=== PATIENT | female | born 1960 | race Hispanic/Latino ===

== ENCOUNTER 2016-09-13 15:49 | Outpatient (CLI) | payer BC ==
--- NOTE | 2016-09-13 16:50 | Mammography Report ---
BILATERAL MAMMOGRAM: FINDINGS: There are scattered fibroglandular densities (approximately 25%-50% glandular). No mass, distortion, suspicious calcification, or skin change is seen. No significant change compared to prior examination in July 2015. CAD was utilized. IMPRESSION: Negative mammogram. There is no mammographic evidence of malignancy. RECOMMENDATION: Follow-up per ACS guidelines. BI-RADS CATEGORY: 1 = Negative ACR BI-RADS MAMMOGRAPHIC CODES: 0 = Needs additional imaging evaluation; 1 = Negative; 2 = Benign; 3 = Probably benign; 4 = Suspicious; 5 = Malignant; 6 = Known biopsy-proven malignancy COMMENT: 1. Dense breast tissue, i.e., adenosis, fibrocystic changes, etc., may obscure an underlying neoplasm. 2. Approximately 10% of cancers are not detected with mammography. 3. A negative mammography report should not delay biopsy if a clinically suspicious mass is present. COMMENT: Patient follow-up letters are generated in [email or web address].
== END 2016-09-13 15:50 | disposition home or self-care (01) ==
LOC: SPVWC 15:49
PROVIDERS: ATTEND Obstetrics & Gynecology
DX: Z12.31 Encounter for screening mammogram for malignant neoplasm of breast (principal)
CPT/HCPCS: 77067; G0202

== ENCOUNTER 2016-11-02 06:08 | Inpatient (IN) | payer BC ==
[2016-10-26 15:25] LABS: Basophils % (Auto) 0.5 % (0.0-1.8); Eosinophils % (Auto) 1.1 % (0.0-4.3); Hematocrit 34.8 % (30.3-42.9); Hemoglobin 11.4 gm/dl (10.1-14.3); Mean Corpuscular HGB Conc 33 % (30-34); Mean Corpuscular Hemoglobin 26 pg (28-32); Mean Corpuscular Volume 80 fl (79-97); Platelet Count 286 K/mm3 (140-440); Red Blood Count 4.35 M/mm3 (3.65-5.03); Red Cell Distribution Width 14.7 % (13.2-15.2); White Blood Count 5.8 K/mm3 (4.5-11.0)
[2016-10-26 15:38] LABS: Anion Gap 17 mmol/L; Blood Urea Nitrogen 14 mg/dL (7-17); Calcium 9.1 mg/dL (8.4-10.2); Carbon Dioxide 26 mmol/L (22-30); Chloride 103.7 mmol/L (98-107); Glucose 100 mg/dL (65-100); Potassium 3.9 mmol/L (3.6-5.0); Sodium 143 mmol/L (137-145)
--- NOTE | 2016-11-01 14:34 | History and Physical Report ---
History of Present Illness Date of examination: 10/26/16 History of present illness: Patient has been reassessed/reevaluated. H&P has been reviewed. No interval changes. This is a postmenopausal 56 years old female who presents with menstrual disorder. The symptoms began 4-6 months ago. She complains of irregular menses , mid-cycle spotting, heavy bleeding, dysmenorrhea and clotting, but denies lack of menses, history of ovarian cysts, history of thyroid disease, history of fibroids, history of PCOS, history of bleeding disorder, lightheadedness, fatigue and cramping. Vital Signs: Patient Profile: 56 Years Old Female LMP: 10/22/2016 Height: 65 inches (165.10 cm) Weight: 277 pounds (125.91 kg) BMI: 46.09 BSA: 2.27 Menstrual History: LMP (date): 10/22/2016 Past History : 0 Term Births: 0 Premature Births: 0 Living Children: 0 Para: 0 Mult. Births: 0 Prev : 0 Prev. attempt? 0 Aborta: 0 Elect. Ab: 0 Spont. 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 Denies fever, chills, sweats, anorexia, weakness, malaise, weight loss and sleep disorder. Complains of abnormal vaginal bleeding. Denies vaginal discharge, incontinence, dysuria, hematuria, urinary frequency, amenorrhea, menorrhagia, pelvic pain, genital sores, decreased libido , painful periods, painful sex, urinary urgency, hot flashes, vaginal dryness, vaginal itching and vaginal odor. CV Denies chest pains, palpitations, syncope, dyspnea on exertion, orthopnea, PND and peripheral edema. Resp Denies cough, dyspnea at rest, excessive sputum, hemoptysis, wheezing and pleurisy. GI Denies nausea, vomiting, diarrhea, constipation, change in bowel habits, abdominal pain, melena, hematochezia, jaundice, gas/bloating, indigestion/ heartburn, dysphagia and odynophagia. Breast Denies left breast lump, right breast lump, nipple discharge, bloody discharge from nipple, breast pain, abnormal mammogram and breast enlargement. Psych Denies depression, anxiety, irritability and mood swings. Medications and Allergies Allergies Allergy/AdvReac Type Severity Reaction Status Date / Time Sulfa (Sulfonamide AdvReac stomach Verified 10/25/16 13:53 Antibiotics) hurts Home Medications Medication Instructions Recorded Confirmed Last Taken Type Fexofenadine/Pseudoephedrine 1 each PO DAILY 10/25/16 11/02/16 10/31/16 History [Jackeline-D 24 Hour Tablet] Fluticasone [Flonase] 1 spray NS QDAY 10/25/16 11/02/16 11/01/16 History Hydrochlorothiazide [Hctz] 12.5 mg PO QDAY 10/25/16 11/02/16 11/01/16 History Levothyroxine [Synthroid] 100 mcg PO QAM 10/25/16 11/02/16 11/02/16 History Lisinopril [Zestril] 5 mg PO QDAY 10/25/16 11/02/16 11/02/16 History Omeprazole [Omeprazole] 40 mg PO DAILY 10/25/16 11/02/16 11/02/16 History AtorvaSTATin [Lipitor] 20 mg PO QHS 10/26/16 11/02/16 11/01/16 History Active Meds: Active Medications Cefazolin Sodium (Ancef/Sterile Water 2 Gm/20 Ml) 2 gm in 20 mls @ 80 mls/hr IV PREOP NR PRN Reason: Protocol Exam - Physical Exam Narrative exam: HEENT: normocephalic, no lesions or deformities Neck/Thyroid: supple, thyroid normal Skin no ulcers, xanthomas Chest: respiratory effort normal, clear to auscultation Breasts: no masses or nipple discharge CV: regular, normal S1-S2, no murmur, no rub, no gallop Abdomen: Obese, normal bowel sounds, soft, nontender, no HSM Musculoskeletal: grossly normal ROM in joints, no joint tenderness or muscle weakness Neuro: no gross anomalities Extremities: normal alignment, no joint enlargement, crepitus, masses or tenderness; normal tone and strength 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 No evidence of cystocele or rectocele. Cervix: normal appearance, no lesions, no discharge Uterus: Unable to palpate uterus or adnexa due to obesity Adnexae: Unable to palpate uterus or adnexa due to obesity Rectovaginal: Rectal exam deferred due to colonoscopy recently performed or is planned - Constitutional Vitals: Temp Pulse Resp BP Pulse Ox 98.2 F 90 16 130/80 10/26/16 14:45 10/26/16 14:45 10/26/16 14:45 10/26/16 14:45 Results - Labs CBC & Chem 7: 10/26/16 15:08 10/26/16 15:08 Assessment and Plan - Patient Problems (1) Postmenopausal bleeding Current Visit: Yes Status: Acute Plan to address problem: Diagnosis explained to patient . Questions answered. Failed medical therapy. Probably secondary to # #2. Diagnosis of post menopausal explained. Malignancy risk explained to patient. Patient desires definitive treatment . Patient desires hysterectomy Discussed risks and benefits of laparotomy, laparoscopy, vaginal and robotic assisted approaches for hysterectomies Patient desires robotic assisted total hysterectomy. Consent reviewed and signed . The risks and alternatives for this surgery were reviewed with the patient. Discuss the risks of the surgery including infection, bleeding possibly heavy enough to require a blood transfusion, possible damage to bowel, bladder or ureter. Patient understand that this surgery with make her sterile.Patient understands if her ovaries are removed she will become menopausal. Also if unable to complete robitcally a laparotomy maybe required. Her questions were answered. Patient advised the small risks of spreading of malignancy if morcellator is used during the surgery patient understands and approve of use if necessary (2) Pelvic mass Current Visit: Yes Status: Acute Plan to address problem: Possible etiology of #1 (3) Hypertension Current Visit: Yes Status: Acute Qualifiers: Hypertension type: essential hypertension Qualified Code(s): I10 - Essential (primary) hypertension (4) Morbid (severe) obesity due to excess calories Current Visit: Yes Status: Acute (5) Irritable bowel syndrome (IBS) Current Visit: Yes Status: Chronic Qualifiers: Irritable bowel syndrome type: unspecified Qualified Code(s): K58.9 - Irritable bowel syndrome without diarrhea
[2016-11-02] MEDS ORDERED: NACL BACTERIOSTATIC INFILTRATI ONE (06:30)
[2016-11-02] MEDS ORDERED: ANCEF/STERILE WATER 2 GM/20 ML 2 GM/20 ML SYRINGE IV NR (07:00)
[2016-11-02] MEDS ORDERED: NEURONTIN PO NR (07:00)
[2016-11-02] MEDS ORDERED: PEPCID PO NR (07:00)
[2016-11-02] MEDS ORDERED: VERSED IV NR (07:00)
[2016-11-02] MEDS: NACL 0.9% 1000 ML 1,000 ML IV SCH ×2 (07:09→22:36)
[2016-11-02] MEDS ORDERED: DIPRIVAN 10 MG/ML IV ONE (07:10)
[2016-11-02] MEDS ORDERED: DILAUDID ONE ×2 (07:11→11:22)
[2016-11-02] MEDS ORDERED: XYLOCAINE MPF 2% ONE (07:12)
[2016-11-02] MEDS ORDERED: DECADRON ONE (07:12)
[2016-11-02] MEDS ORDERED: ZEMURON IV ONE (07:12)
[2016-11-02] MEDS ORDERED: ZOFRAN ONE (07:12)
--- NOTE | 2016-11-02 07:23 | Anesthesia Day of Surgery ---
Anesthesia Day of Surgery - Day of Surgery Patient Examined: Yes Patient H&P Reviewed: Yes Patient is NPO: Yes
--- NOTE | 2016-11-02 07:23 | Anesthesia Consultation ---
Anesthesia Consult and Med Hx Date of service: 11/02/16 - Airway Anesthetic Teeth Evaluation: Good ROM Head & Neck: Adequate Mental/Hyoid Distance: Adequate Mallampati Class: Class II Intubation Access Assessment: Probably Good - Pulmonary Exam CTA: Yes - Cardiac Exam Cardiac Exam: RRR - Pre-Operative Health Status ASA Pre-Surgery Classification: ASA3 Proposed Anesthetic Plan: General - Pulmonary Hx Sleep Apnea: Yes (uses cpap) - Cardiovascular System Hx Hypertension: Yes (since 2008) - Central Nervous System Hx Psychiatric Problems: No - Endocrine Hx Hypothyroidism: Yes - Other Systems Hx Alcohol Use: Yes (occas) Hx Obesity: Yes
[2016-11-02] MEDS ORDERED: NEOSPORIN GU IR ONE ×2 (07:34→08:33)
[2016-11-02] MEDS ORDERED: METHYLENE BLUE ONE (07:34)
[2016-11-02] MEDS ORDERED: MARCAINE-EPI/PF 0.25%-1:200,000 INFILTRATI ONE (07:34)
[2016-11-02] MEDS ORDERED: GELFOAM POWDER 1GM MM ONE ×2 (08:33→09:12)
[2016-11-02] MEDS ORDERED: NACL 0.9% IR ONE ×2 (08:33)
[2016-11-02] MEDS ORDERED: THROMBIN (BOVINE) TP ONE ×2 (08:33→09:11)
[2016-11-02] MEDS ORDERED: NACL 0.9% 1000 ML 1,000 ML ONE (09:54)
[2016-11-02] MEDS ORDERED: PREMARIN VG ONE ×2 (10:50→11:00)
[2016-11-02] MEDS ORDERED: TORADOL IV PRN (11:21)
[2016-11-02] MEDS ORDERED: ZOFRAN IV PRN (11:21)
[2016-11-02] MEDS: DILAUDID IV PRN ×2 (11:25→11:35)
--- NOTE | 2016-11-02 11:38 | Operative Report ---
Operative Report Operative Report: Operative Report: Date of procedure: 11/02/2016 Pre-operative diagnosis postmenopausal bleeding and failed medical treatment Post-operative diagnosis: Same Procedure name(s): Robotic assisted total hysterectomy with bilateral salpingo- oophorectomy Surgeon: Hu Marquis MD Hedis Specialist: Nima Dueans Anesthesia: General EBL: 50 mL Complications: vaginal lacerations that needed repair after removal of the uterus Findings: Uterus approximately 8 weeks in size with normal tubes and ovaries bilaterally Specimen(s): Uterus including cervix was bilateral adnexa Procedure: Patient was brought to the operating room where general anesthesia was induced without difficulty. Patient was placed in the dorsal lithotomy position. Prepped and draped in the usual sterile manner for robotic procedure. Mcknight catheter was placed without difficulty. Speculum was placed in the vagina. A large V-Care Uterine manipulator was placed without difficulty. Attention was now switched to the patient's abdomen. A vertical supra-umbilicus incision was made with a scalpel. A 10-12 trocar was placed in this incision under direct visualization. Intra-abdominal placement was verified with no evidence of internal organ damage. The patient pelvic findings were noted as above. It was determined that the patient was a candidate for robotic procedure. On both sides the umbilical incision at 8 cm, incisions were made for robotic trocar. Each robotic trocar was placed under direct visualization with no evidence of internal organ damage. One bankruptcy legal assistant ports were then placed. One 8-10 trocar was placed 2 fingerbreadths above the right iliac crest. At this time the patient was placed in extreme Trendelenburg. The da Renay robot was then docked on the patient's left side. At this time I took my place under the robotic operating howell. Starting on the patient's right side the right ureter was clearly seen out of the operative field. The ovarian vessels were clearly seen cauterize and cut with the robotic scissors. The meso salpinx were cauterized and cut reaching to the round ligament. The round ligament was cauterized and cut. The leaves of the broad ligament on that side was anteriorly and posteriorly. The anterior leaves were use to form a bladder flap anteriorly the posterior leaf was cut exposing the uterine vessels on that side. The uterine vessels were cauterized and cut the bladder flap was more clearly made. Attention was then switched to the patient's left side. Where the ureter was again identified and cleared out of the field. The same procedure was cauterized and cut and the ovarian vessels and receiving with some incising the round ligament broad the broad ligament then cauterized and cut and the uterine vessels were performed.. At this time the uterus was appearing very cyanotic. After inspecting the bladder flap insured no evidence of bladder injury, the colpotomy was then started. Incision started at 6:00 until the V-Care could be seen. This incision was extended from 6:00 to 9:00. Then from 6:00 to 3:00. Then from 9: 00 to 12:00. This incision was extended from 3:00 to 12:00. At this time colpotomy was complete with no evidence of adjacent organ damage. The bankruptcy legal assistant remove the uterus from through the colpotomy site. The vaginal cuff was irrigated and cauterized and found to be hemostatic. The cuff was closed with roboticly using 0 V- Lock suture. This closure was hemostatic after irrigation and Bovie. All pedicles were inspected and found to be hemostatic. The ureters were identified bilaterally and found to be functioning normal. The Mcknight bag had clear yellow urine. [place] is placed across the vaginal cuff. All instruments were then removed. The large trocar sites were closed in layers and 4-0 Vicryl. The smaller incisions were closed subcuticularly with 4-0 Vicryl. Inspection of her vagina revealed a patient with a several vaginal lacerations. These some lacerations some repaired with 3 -0 Vicryl. Primary and so vaginal pack was in place. The patient tolerated procedure well. She was awakened in the operating room and accompanied to recovery room in good condition.
--- NOTE | 2016-11-02 11:46 | Post Anesthesia Evaluation ---
- Post Anesthesia Evaluation Patient Participated: Yes Airway Patent: Yes Stable Respiratory Function: Yes Nausea/Vomiting: No Temp > 96.8F: Yes Pain Manageable: Yes Adequeate Hydration: Yes Anesthesia Complications: No Block Receding Appropriately: Not Applicable Patient on Ventilator: No
[2016-11-02] MEDS ORDERED: TORADOL ONE (12:06)
--- NOTE | 2016-11-02 16:42 | Event Note ---
Date: 11/02/16 Day of surgery. Discuss operative findings with patient and questions answered. Patient without fever. Will ambulate in halls this evening. Good urine output. We will continue routine postoperative care. Discussed with the patient the reason for the vaginal pack. Questions answered. Patient desires Mcknight catheter removed Will observe later on and if ambulating well and good urine output we will move Mcknight this evening
[2016-11-02] MEDS ORDERED: CLIMARA TD SCH (18:00)
[2016-11-02] MEDS: NORCO 5/325 PO PRN (18:06)
[2016-11-02] MEDS: COLACE PO SCH (22:00)
[2016-11-02] MEDS: TORADOL IV PRN (22:36)
[2016-11-03] MEDS: TORADOL IV PRN (05:55)
[2016-11-03] MEDS ORDERED: SYNTHROID PO SCH (06:00)
[2016-11-03] MEDS: NORCO 5/325 PO PRN ×2 (06:03→10:30)
[2016-11-03 06:29] LABS: Hematocrit 30.9 % (30.3-42.9); Hemoglobin 9.9 gm/dl (10.1-14.3)
--- NOTE | 2016-11-03 09:58 | Discharge Summary ---
Providers - Providers Date of Admission: 11/02/16 11:21 Date of discharge: 11/03/16 Attending physician: MARISABEL COLUNGA Hospitalization Reason for admission: postmenopausal bleeding Condition: Good Procedures: Robotic-assisted total hysterectomy and bilateral salpingo- oophorectomy Hospital course: Patient was admitted and underwent above procedure without complications. Her post operative course was benign she was afebrile throughout. Patient postoperative day 1 hematocrit was in an acceptable range. Vaginal pack was removed with no active bleeding noted. Patient had no orthostatic symptoms. Patient was tolerating regular diet and voiding without difficulty at time of discharge. Patient incision was healing well without evidence of infection. Disposition: DC- TO HOME OR SELFCARE - Discharge Diagnoses (1) Postmenopausal bleeding Status: Acute (2) Pelvic mass Status: Acute (3) Hypertension Status: Chronic Qualifiers: Hypertension type: essential hypertension Qualified Code(s): I10 - Essential (primary) hypertension (4) Morbid (severe) obesity due to excess calories Status: Chronic (5) Irritable bowel syndrome (IBS) Status: Chronic Qualifiers: Irritable bowel syndrome type: unspecified Qualified Code(s): K58.9 - Irritable bowel syndrome without diarrhea Core Measure Documentation - Palliative Care Palliative Care/ Comfort Measures: Not Applicable - Core Measures Any of the following diagnoses?: none Exam - Constitutional Vitals: Temp Pulse Resp BP Pulse Ox 97.6 F 94 H 18 144/72 2 L 11/03/16 08:00 11/03/16 08:00 11/03/16 08:00 11/03/16 08:00 11/02/16 23:45 General appearance: Present: no acute distress - Respiratory Respiratory effort: normal - Cardiovascular Rhythm: regular - Extremities Extremities: no ischemia, pulses intact - Abdominal General gastrointestinal: Present: soft, tender (appropriately tender), other ( trocar incisions healing well) Female genitourinary: Present: normal, other (vaginal pack removed with some bloodstained but no active vaginal bleeding noted) - Rectal Rectal Exam: deferred - Integumentary Integumentary: Present: clear, warm, dry - Musculoskeletal Musculoskeletal: strength equal bilaterally Plan Activity: advance as tolerated Diet: regular Wound: open to air Additional Instructions: Patient instructed no heavy lifting for 4 weeks. No intercourse for 8 weeks. Call office for fever, chills, nausea, vomiting or pain not controlled by pain medications. Ambulation is encouraged. Patient's call for heavy vaginal bleeding. Patient instructed to keep her scheduled post operative office appointment. Follow up with: MALIHA FRANCO [Other] - 7 Days Prescriptions: Ferrous Sulfate [Feosol 325 MG tab] 325 mg PO BID #60 tablet Estradiol [Minivelle] 1 patch TD 2XW #8 patch.tdsw Ibuprofen [Motrin 800 MG tab] 800 mg PO Q6H PRN #30 tablet PRN Reason: Pain oxyCODONE /ACETAMINOPHEN [Percocet 5/325 mg] 1 - 2 tab PO Q4H PRN #30 tablet PRN Reason: Pain, Moderate
[2016-11-03] MEDS ORDERED: FLONASE NS SCH (10:00)
[2016-11-03] MEDS ORDERED: ZESTRIL PO SCH (10:00)
[2016-11-03] MEDS ORDERED: HCTZ PO SCH (10:00)
[2016-11-03] MEDS: COLACE PO SCH (10:05)
[2016-11-03 10:07] VITALS: BP 142/76
== END 2016-11-03 13:56 | disposition home or self-care (01) | DRG 982 ==
LOC: OR 06:08 → OB 11:21
PROVIDERS: ADMIT Obstetrics & Gynecology; ATTEND Obstetrics & Gynecology
PROC: 0UT94ZZ Resection of Uterus, Percutaneous Endoscopic Approach (ICD-10-PCS; principal; 2016-11-02)
PROC: 0UTC4ZZ Resection of Cervix, Percutaneous Endoscopic Approach (ICD-10-PCS; 2016-11-02)
PROC: 0UT24ZZ Resection of Bilateral Ovaries, Percutaneous Endoscopic Approach (ICD-10-PCS; 2016-11-02)
PROC: 0UT74ZZ Resection of Bilateral Fallopian Tubes, Percutaneous Endoscopic Approach (ICD-10-PCS; 2016-11-02)
PROC: 8E0W4CZ Robotic Assisted Procedure of Trunk Region, Percutaneous Endoscopic Approach (ICD-10-PCS; 2016-11-02)
DX: R19.00 Intra-abdominal and pelvic swelling, mass and lump, unspecified site (principal); Z68.42 Body mass index [BMI] 45.0-49.9, adult; N95.0 Postmenopausal bleeding; E66.01 Morbid (severe) obesity due to excess calories; I10 Essential (primary) hypertension; K58.9 Irritable bowel syndrome, unspecified; G47.30 Sleep apnea, unspecified; E03.9 Hypothyroidism, unspecified; Z88.2 Allergy status to sulfonamides; Z90.49 Acquired absence of other specified parts of digestive tract; Z80.3 Family history of malignant neoplasm of breast
CPT/HCPCS: 36415; 80048; 81025; 85014; 85018; 85025; 86850; 86900; 86901; 88307; A4217; A9270-GY; J0690; J1100; J1170; J1885; J2250; J2405; J2704; J7030; Q9968

== ENCOUNTER 2017-11-29 15:23 | Outpatient (CLI) | payer OTHER ==
--- NOTE | 2017-11-29 16:29 | Mammography Report ---
BILATERAL DIGITAL SCREENING MAMMOGRAM with CAD: 11/29/17 15:23:00 CLINICAL: Routine screening. COMPARISON:09/13/16 FINDINGS: The breasts are mostly fatty with bilateral residual heterogeneously dense fibroglandular densities. No mass, architectural distortion or suspicious calcifications. IMPRESSION: No mammographic evidence of malignancy. BI-RADS CATEGORY: 1 - - Negative RECOMMENDATION: Routine mammographic screening in one year. COMMENT: Patient follow-up letters are generated by our [employer] application.
== END 2017-11-29 15:24 | disposition home or self-care (01) ==
LOC: SPVWC 15:23
PROVIDERS: ATTEND Obstetrics & Gynecology
DX: Z12.31 Encounter for screening mammogram for malignant neoplasm of breast (principal); I10 Essential (primary) hypertension; E66.01 Morbid (severe) obesity due to excess calories; E78.00 Pure hypercholesterolemia, unspecified; K21.9 Gastro-esophageal reflux disease without esophagitis; E66.9 Obesity, unspecified; E03.9 Hypothyroidism, unspecified; J44.9 Chronic obstructive pulmonary disease, unspecified; Z90.89 Acquired absence of other organs; Z88.2 Allergy status to sulfonamides; Z90.49 Acquired absence of other specified parts of digestive tract
CPT/HCPCS: 77067

== ENCOUNTER 2019-02-24 15:38 | Outpatient (CLI) | payer OTHER ==
--- NOTE | 2019-02-25 13:30 | Mammography Report ---
DIGITAL SCREENING MAMMOGRAM WITH CAD, 02/24/2019 INDICATION: Routine screening mammography. TECHNIQUE: Digital bilateral 2D mammography was obtained in the craniocaudal and mediolateral obliq ue projections. This examination was interpreted with the benefit of Computer-Aided Detection analysi s. COMPARISON: 11/29/2017 FINDINGS: Breast Density: The breasts are heterogeneously dense, which may obscure small masses. There is no evidence of dominant mass, suspicious calcifications or architectural distortion in eithe r breast. IMPRESSION: No mammographic evidence of malignancy. Follow up recommendation: Routine yearly BI-RADS Category 1: Negative. A "normal" or negative report should not discourage follow up or biopsy of a clinically significant f inding. A written summary of these findings will be mailed to the patient. The patient will be entered into a mammography reporting system which will generate a reminder letter for the patient's next appointmen t at the appropriate interval. The [employer] recommends yearly mammograms starting at age 40 and continuing as l tamia as a woman is in good health. Breast MRI is recommended for women with an approximate 20-25% or greater lifetime risk of breast cancer, including women with a strong family history of breast or ova fatoumata cancer or who have been treated for Hodgkin's disease. Signer Name: Young Madera MD Signed: 02/25/2019 1:26 PM Workstation Name: [id number]
== END 2019-02-24 15:39 | disposition home or self-care (01) ==
LOC: SPVWC 15:38
PROVIDERS: ATTEND Obstetrics & Gynecology
DX: Z12.31 Encounter for screening mammogram for malignant neoplasm of breast (principal)
CPT/HCPCS: 77067